=== PATIENT | female | born 1955 | race Caucasian/White ===

== ENCOUNTER → 2020-06-05 08:22 | Outpatient (CLI) | payer BC, SELFPAY ==
[2020-06-05 08:20] VITALS: BMI 34.1
--- NOTE | 2020-06-05 08:22 | RAD_ITS ---
STUDY: X-RAY - LEFT KNEE REASON FOR EXAM: Female, 64 years old. INCREASED KNEE SWELLING TECHNIQUE: 4 view(s) of the knee. COMPARISON: None. FINDINGS: Normal visualized distal femur. Normal visualized proximal tibia and fibula. Normal proximal tibiofibular articulation. Normal medial femorotibial compartment. Normal lateral femorotibial compartment. There is mild degenerative arthrosis of the patellofemoral articulation. Small joint effusion. RAD/Knee 4 or More Views IMPRESSION: Degenerative arthrosis. Small joint effusion. Electronically Signed: Oleg Elliott, at 14:20 EDT , Service support ,
== END ==
PROVIDERS: PCP Family Medicine; Referring Provider Orthopaedic Surgery; Visit Provider Orthopaedic Surgery
DX: M25.462 Effusion, left knee (principal)
CPT/HCPCS: 73564

== ENCOUNTER 2020-10-10 12:44 | Day surgery (SDC) | payer BC, SELFPAY ==
[2020-06-05 08:20] VITALS: BMI 34.1
--- NOTE | 2020-09-30 17:21 | PCM.HP.BLA ---
History and Physical Date of Admission: 10/10/20 HPI: The patient is a 64 year old female presenting for pre-operative visit. She is scheduled for?Hysteroscopy D&C??with polyp resectio, for?PMB and endometrial polyp on?10/10/2020. ??Procedure discussed along with risks, benefits and complications. ?Other alternatives discussed for management. Consent form signed??Yes.? PAST MEDICAL HISTORY PAST MEDICAL HISTORY Diagnosis Date ? Allergic rhinitis, cause unspecified ? ? Allergic rhinitis ? Arthritis ? ? ? PAST SURGICAL HISTORY PAST SURGICAL HISTORY Procedure Laterality Date ? CATARACT EXTRACTION HX ? 2019 ? PAST SURGICAL HISTORY OF ? ? ? wisdom deeth extraction ? REMOVAL OF TONSILS,<12 Y/O ? ? ? Tonsillectomy ? ? CURRENT MEDICATIONS Current Outpatient Medications Medication Sig Dispense Refill ? meloxicam (MOBIC) 15 mg tablet Take 15 mg by mouth once daily. ? ? ? miSOPROStol (CYTOTEC) 200 mcg tablet Use 2 tablets vaginally as directed for [address] 2 tablets vaginally qhs before the procedure and 2 the morning of 4 tablet 0 ? desonide 0.05 % TOPICAL cream Apply ?to affected area twice daily. topically (Patient not taking: Reported on 08/20/2020 ) 30 g 1 ? predniSONE 20 mg ORAL tablet Take ?by mouth. 3 PO DAILY X 3 DAYS,THEN 2 PO DAILY X 3 DAYS, THEN 1 PO DAILY X 3DAYS THEN 1/2 TAB PO DAILY UNTIL GONE (Patient not taking: Reported on 08/20/2020 ) 20 tablet 0 ? No current facility-administered medications for this visit.? ? ALLERGIES:?Betadine [Povidone-Iodine] and Claritin [Loratadine] ? PERSONAL HISTORY:? SOCIAL HISTORY Social History ? Tobacco Use ? Smoking status: Never Smoker ? Smokeless tobacco: Never Used Substance Use Topics ? Alcohol use: No ? Drug use: No ? FAMILY HISTORY:? FAMILY HISTORY FAMILY HISTORY Problem Relation Age of Onset ? Hypertension Mother ? ? Cancer Father ?prostate at age 72 ? Hypertension Father ? ? Heart Brother ? ? Heart Maternal Grandmother ? ? Heart Maternal Grandfather ? ? Colon Cancer Other ?none ? REVIEW OF SYMPTOMS: GENERAL: denies fevers or chills ENDOCRINOLOGY: has not been on steroids Cardiology : denies palpitations or chest pain Respiratory: denies SOB or cough Hematology: denies history of prolonged bleeding or easy bruising or VTE Allergy: Denies history of personal or family history of allergy to anesthesia ? ? PHYSICAL EXAMINATION: ? VITALS:?Blood pressure 124/76, pulse 84, resp. rate 14, height 5' 6 (1.676 m), weight 214 lb (97.1 kg), last menstrual period 11/30/2005. ? GENERAL:??The patient is well nourished, well hydrated in no acute distress. ?, The patient is oriented to time, place, and person. NECK:?Supple. No lynphadenopathy, normal thyroid, no thyromegaly. LUNGS:?Clear to auscultation bilaterally. no wheezes, rhonchi or rales HEART:?Regular rate and rhythm, Normal heart sounds and No murmurs or gallops ? IMPRESSION:?PMB, endometrial polyp ? PLAN:??The risks/benefits/alternatives and personal involved for the planned?hsyteroscopy D&C with polyp resection?were reviewed with the patient. Her questions were answered to her satisfaction and she desires to proceed. ?Consent was signed. ?I reviewed with her postop instructions and expectations. ? ? I have reviewed and updated past medical and surgical history, medications and allergies. This H&P was completed i my office on 09/30/2020. Procedure Criteria Procedure Type: Elective COVID Risk Discussion: The surgeon/proceduralist and patient have discussed in detail the risk of exposure to and/or potential harm posed by the COVID-19 virus with having a surgery/procedure at this time versus the risk of delaying the surgery/procedure. It is not possible to know either the risk of delaying the surgery or procedure or chance of getting an infection with perfect accuracy, but a joint decision was made between the patient and the surgeon/proceduralist to proceed at this time with the scheduled surgery/procedure as indicated on the consent form.
[2020-10-08 16:47] LABS: Hematocrit 44.9 % (37-47); Hemoglobin 14.3 g/dL (12.0-15.0); Mean Corp Hgb Conc 31.8 g/dL (32-36); Mean Corpuscular Hgb 28.1 pg (27.0-32.0); Mean Corpuscular Volume 88.2 fL (81-99); Mean Platelet Vol. 10.2 fl (6.2-12.0); Platelet Count 275 K/mm3 (150-450); RBC Distribution Width CV 14.6 % (11.6-14.6); Red Blood Count 5.09 M/mm3 (4.2-5.4); White Blood Count 7.3 K/mm3 (4.4-11.0)
[2020-10-08 17:31] LABS: Anion Gap 5 (5-15); BUN 17 mg/dL (7-18); BUN/Creat Ratio 19.1 RATIO (10-20); Calcium,Total 9.7 mg/dL (8.5-10.1); Chloride 104 mmol/L (98-107); Creatinine, Serum 0.89 mg/dL (0.55-1.02); EST Glomerular Filtration Rate 68 mL/min (>60); Est Glom Filt Rate - Afr Amer 82 mL/min (>60); Glucose 84 mg/dL (74-106); Potassium 3.9 mmol/L (3.5-5.1); Sodium Level 140 mmol/L (136-145)
[2020-10-10] VITALS (7 sets, daily range): BP systolic 94–150; BP diastolic 55–86; PULSE 78–90; RESP 14–16; TEMP 35.9–37; O2SAT 95–99; BMI 34.2
[2020-10-10] MEDS: Acetaminophen 500 MG Tablet 1000 MG PO (13:51)
[2020-10-10] MEDS: Celecoxib 100 MG Capsule 300 MG PO (13:52)
[2020-10-10] MEDS: Lactated Ringers 1,000 ML 100 ML IV (13:54)
--- NOTE | 2020-10-10 14:15 | EMB_PTH ---
PATIENT: PAGE LICONA [place] [facility] [id number] AGE/SX: 64/F ROOM: RE10/10/[address]: Dr. Eri Sánchez MD : [id number] BED: DIS: 10/10/2020 SPEC #: [id number] RECD: 10/10/20 14:51 STATUS: OSMAN REReddy #: [id number] PARTH: 10/10/20 14:[address]: Eri Sánchez DEPT: SURGICAL PATHOLOGY RECD BY: Shanna Gill ENTERED: 10/11/20 07:32 SP TYPE: ENDOM BX/C OTHR DR: Dr. Cyril Hutson MD Tissues: Endometrium, NOS Procedures: Surgery Specimen Level IV HEADER OPERATION: Hysteroscopy, D & C, polyp resection, Symphion PRE-OP DIAGNOSIS: PMB, endometrial polyp TISSUE SUBMITTED: Endometrial curettings MICROSCOPIC DIAGNOSIS Endometrium, curettings: Polypoid fragments of weakly proliferative to inactive endometrium with cystic change. See comment. AM:manjit 10/14/20 COMMENT The findings are consistent with a polyp. Clinical correlation is suggested. MICROSCOPIC DESCRIPTION Slides are reviewed. GROSS DESCRIPTION Received in fixative is one container labeled with the patient's name and designated endometrial curettings. The specimen consists of multiple irregular fragments of light acuna soft tissue that in aggregate measure 2 x 2 x 0.2 cm. The specimen is totally submitted in one cassette. / SJ:manjit 10/11/20 TC:5 CPT: 09871
[2020-10-10] MEDS: Lidocaine 1% /Epi 1:100 (20ml) 20 ML Vial (14:25)
--- NOTE | 2020-10-10 14:40 | PCM.OPRPT ---
Report of Operation Date of Procedure: 10/10/20 Pre-Operative Diagnosis: Postmenopausal bleeding, endometrial polyp Post-Operative Diagnosis: Same Surgery/Procedure Performed:: Hysteroscopy dilation and curettage with endometrial polyp resection Description of Surgical Findings:: Normal-appearing cervix and vagina, endometrial cavity with thin endometrium and anterior right sided endometrial polyp retail customer service representative: Marcos Vernon ms3 Type of Anesthesia:: MAC/Supplemental/Local Anesthesiologist: Val Betancourt Special Medications: none Specimen's removed: endometrial curettings Drains: none Estimated Blood Loss (mL): 10 Fluids Replaced: 600 cc Description of Procedure: The patient was taken to the OR where she was prepped and draped in dorsal lithotomy position. The weighted speculum was placed in the vagina and the anterior lip of the cervix was grasped with a single-tooth tenaculum. A paracervical block was administered with 1% lidocaine with 1-100,000 epinephrine solution. The cervix was dilated serially with Hegar dilators. The Symphion hysteroscope was placed into the uterine cavity and the above findings were noted. Bilateral tubal ostia were identified. Cavity pressure was set at 75 mmHg. The Symphion device was readied and inserted. The polyp was resected in its entirety and a visual dilation and curettage was performed. The instruments were removed from the vagina. The specimen was handed off and sent to pathology. All sponge and needle counts were correct. Vaginal sweep was performed by me. The patient was awakened and taken to the recovery room in stable condition. Hysteroscopic calculated fluid deficit is 400 cc normal saline Start time 1425 End time 1436 Grafts/Implants Used: none - Complications none - Admit VTE Documentation VTE Present on Admission: No VTE Mechan Device Prophylaxis: SCD's VTE Pharm Prophylaxis ordered?: No Reason prophylaxis not ordered:: Procedure Not Indicated
--- NOTE | 2020-10-10 14:44 | DCINST_ITS ---
Discharge Diet: No Restrictions Discharge Activity: Return to Normal Activity, May Shower, May Take a Tub Bath - in 2 weeks. May resume sexual activity in: 2 weeks Call your doctor if your incision/area has: Sudden Increased Bleeding, Foul Smelling Discharge Call your doctor if you observe: Fever of 101 or Higher, Using more than one pad per hour - for 2 hrs in a row Allergies/Adverse Reactions: Allergies loratadine [From Claritin] Adverse Reaction (Intermediate, Verified 10/10/20 13:22) heart racing povidone-iodine [From Betadine] Adverse Reaction (Intermediate, Verified 10/10/20 13:22) itching soap [From Betadine] Adverse Reaction (Intermediate, Verified 10/10/20 13:22) itching seafood Allergy (Intermediate, Uncoded 10/10/20 13:22) vomitting Medications to take at Discharge naproxen sodium 220 mg capsule 220 mg PO BID PRN 06/05/20 Meloxicam [Mobic] 15 mg PO PRN PRN 10/01/20 Primary Care Physician: Cyril Hutson MD [Primary Care Provider] - Test Results: Test results from this visit will be discussed in further detail at your follow- up appointment, if applicable. Please Follow Up With: Eri Sánchez MD - [phone] When: as needed. We will call you with your pathology next week
[2020-10-10] MEDS: HYDROcodone Bitartrate/Apap 5/325 Tablet PO (15:24)
== END 2020-10-10 16:34 | disposition home or self-care (01) ==
LOC: SDC 12:45 → AC 12:45
PROVIDERS: PCP Family Medicine; Referring Provider Obstetrics & Gynecology; Visit Provider Obstetrics & Gynecology
PROC: 0UB98ZZ Excision of Uterus, Via Natural or Artificial Opening Endoscopic (ICD-10-PCS; CPT 58558; principal; 2020-10-10 14:00)
DX: N84.0 Polyp of corpus uteri (principal); N95.0 Postmenopausal bleeding; Z20.828 Contact with and (suspected) exposure to other viral communicable diseases; I10 Essential (primary) hypertension; J30.9 Allergic rhinitis, unspecified; M19.90 Unspecified osteoarthritis, unspecified site; Z78.0 Asymptomatic menopausal state
CPT/HCPCS: 00952; 58558; 36415; 80048; 85027; 87426; 88305; C9803; J7120; J2405